=== PATIENT | female | born 1980 | race Caucasian/White ===

== ENCOUNTER 2017-09-15 10:58 | Emergency (ER) | payer MEDICAID ==
[~2017-09-15] VITALS: Ht 180.3 cm; Wt 120.5 kg
[2017-09-15 11:04] VITALS: BP 119/81; TEMP 98.3
[2017-09-15] MEDS ORDERED: PROMETHAZINE12.5 M5 (11:08)
[2017-09-15 11:44] LABS: BASO % 0.4 % (0.0-2.0); EOS # 0.1 (0.0-0.7); EOS % 0.8 % (0-4.0); GRAN # 9.1 (1.4-6.5); HEMATOCRIT 39.6 % (37.0-47.0); HEMOGLOBIN 13.3 g/dl (12.5-16.0); LYMPH # 1.1 (1.2-3.4); LYMPH % 10.3 % (20.0-51.0); MEAN CELL VOLUME 87 fl (80.0-100.0); MEAN CORPUSCULAR HEMOGLOBIN 29 pg (27.0-31.0); MEAN CORPUSCULAR HGB CONC 34 g/dl (33.0-37.0); MEAN PLATELET VOLUME 9.6 fl (7.4-10.4); MONO # 0.6 (0.1-0.6); MONO % 5.2 % (1.7-9.3); PLATELET COUNT 307 K/mm3 (130-400); RED BLOOD COUNT 4.54 M/mm3 (4.10-5.30); WHITE BLOOD COUNT 10.9 K/mm3 (4.8-10.8)
[2017-09-15 12:14] LABS: ADJUSTED CALCIUM 9.1 mg/dL (8.4-10.2); ALBUMIN 3.9 gm/dL (3.5-5.0); BILIRUBIN,TOTAL 0.6 mg/dL (0.0-1.0); CREATININE, serum 0.75 mg/dL (0.52-1.25); POTASSIUM 3.9 mmol/L (3.4-5.0); TOTAL PROTEIN 7.3 gm/dL (6.4-8.2)
[2017-09-15 13:10] LABS: INFLUENZA A NEGATIVE; INFLUENZA B NEGATIVE
[2017-09-15 13:34] VITALS: PULSE 86
== END 2017-09-15 13:35 | disposition home or self-care (01) ==
LOC: COL.ER 10:58
PROVIDERS: Physician Assistant Medical
DX: O21.9 Vomiting of pregnancy, unspecified (principal); O26.891 Other specified pregnancy related conditions, first trimester; R19.7 Diarrhea, unspecified; Z3A.10 10 weeks gestation of pregnancy
CPT/HCPCS: J2550; J7030

== ENCOUNTER 2018-03-14 11:14 | Outpatient (CLI) | payer MEDICAID ==
[~2018-03-14] VITALS: Ht 182.9 cm; Wt 125.5 kg
[~2018-03-14 11:14] MED LIST: PROMETHAZINE12.5 M5
[2018-03-14 11:36] VITALS: BP 104/68; PULSE 99; TEMP 97.8
[2018-03-14] MEDS ORDERED: PRENATAL MVI (11:41)
[2018-03-14 12:00] VITALS: BP 015/68; PULSE 96
[2018-03-14 12:30] LABS: HEMATOCRIT 37.1 % (37.0-47.0); HEMOGLOBIN 12.4 g/dl (12.5-16.0); MEAN CELL VOLUME 85 fl (80.0-100.0); MEAN CORPUSCULAR HEMOGLOBIN 28 pg (27.0-31.0); MEAN CORPUSCULAR HGB CONC 33 g/dl (33.0-37.0); MEAN PLATELET VOLUME 10.6 fl (7.4-10.4); PLATELET COUNT 286 K/mm3 (130-400); RED BLOOD COUNT 4.38 M/mm3 (4.10-5.30); REDCELL DISTRIBUTION WIDTH-CV 12.9 % (11.5-14.5)
[2018-03-14 12:34] LABS: ALBUMIN 3.3 gm/dL (3.5-5.0); BILIRUBIN,TOTAL 0.2 mg/dL (0.0-1.0); CALCIUM 9.1 mg/dL (8.4-10.2); CREATININE, serum 0.77 mg/dL (0.52-1.25); POTASSIUM 4.1 mmol/L (3.4-5.0); TOTAL PROTEIN 6.9 gm/dL (6.4-8.2)
[2018-03-14 12:38] VITALS: BP 015/68; PULSE 93
== END 2018-03-14 12:50 | disposition home or self-care (01) ==
LOC: LDRO 11:14
PROVIDERS: Obstetrics & Gynecology
DX: O36.8130 Decreased fetal movements, third trimester, not applicable or unspecified (principal); Z3A.36 36 weeks gestation of pregnancy

== ENCOUNTER 2018-03-24 14:44 | Inpatient (IN) | payer MEDICAID ==
[~2018-03-24] VITALS: Ht 180.3 cm; Wt 125.9 kg
[2018-03-24] VITALS (17 sets, daily range): BP systolic 100–119; BP diastolic 53–73; PULSE 73–100; TEMP 97.6–98
[~2018-03-24 14:44] MED LIST changes: +PRENATAL MVI
[2018-03-24 18:17] LABS: BASO # 0.1 (0.0-0.2); BASO % 0.4 % (0.0-2.0); EOS # 0.1 (0.0-0.7); EOS % 0.7 % (0-4.0); GRAN # 8.5 (1.4-6.5); GRAN % 72.4 % (42.2-75.2); HEMOGLOBIN 12.2 g/dl (12.5-16.0); LYMPH # 2.1 (1.2-3.4); LYMPH % 18.3 % (20.0-51.0); MEAN CELL VOLUME 83 fl (80.0-100.0); MEAN CORPUSCULAR HEMOGLOBIN 28 pg (27.0-31.0); MEAN CORPUSCULAR HGB CONC 34 g/dl (33.0-37.0); MEAN PLATELET VOLUME 10.8 fl (7.4-10.4); MONO # 0.9 (0.1-0.6); MONO % 7.4 % (1.7-9.3); PLATELET COUNT 300 K/mm3 (130-400); RED BLOOD COUNT 4.29 M/mm3 (4.10-5.30)
[2018-03-24 18:26] LABS: HEMATOCRIT 35.7 % (37.0-47.0)
[2018-03-25 03:20] VITALS: BP 105/61; PULSE 70; TEMP 97.6
[2018-03-25 06:49] VITALS: BP 94/68; PULSE 68; TEMP 98.1
[2018-03-25 08:23] LABS: HEMOGLOBIN 10.9 g/dl (12.5-16.0)
[2018-03-25 08:33] LABS: HEMATOCRIT 32.4 % (37.0-47.0)
[2018-03-25] MEDS ORDERED: IBU600 MG PO (11:29)
[2018-03-25] MEDS ORDERED: NORCO 325 MG-51 TAB PO (11:29)
[2018-03-25 16:10] VITALS: BP 112/68; PULSE 72; TEMP 98.1
[2018-03-25 20:00] VITALS: BP 98/61; PULSE 79; TEMP 97.7
[2018-03-26 06:51] VITALS: BP 114/68; PULSE 72; TEMP 98.1
[2018-03-26 16:01] VITALS: BP 100/64; PULSE 70; TEMP 98
== END 2018-03-26 18:48 | disposition home or self-care (01) | DRG 765 ==
LOC: LDR 14:44 → OB 16:50
PROVIDERS: Obstetrics & Gynecology
PROC: 10D00Z1 Extraction of Products of Conception, Low, Open Approach (ICD-10-PCS; principal; 2018-03-24)
DX: O36.8130 Decreased fetal movements, third trimester, not applicable or unspecified (principal); D62 Acute posthemorrhagic anemia; O32.1XX0 Maternal care for breech presentation, not applicable or unspecified; Z3A.37 37 weeks gestation of pregnancy; Z37.0 Single live birth; O99.02 Anemia complicating childbirth; O99.214 Obesity complicating childbirth; Z68.38 Body mass index [BMI] 38.0-38.9, adult
CPT/HCPCS: J0171; J0690; J1885; J2270; J2405; J2590; J7120

== ENCOUNTER → 2020-03-27 | Outpatient (CLI) | payer BC ==
[~2020-03-27] MED LIST changes: +IBU600 MG PO; +NORCO 325 MG-51 TAB PO
== END ==
LOC: COL.LAB 07:17
DX: U07.1 COVID-19 (principal)